=== PATIENT | female | born 1995 | race Caucasian/White ===

== ENCOUNTER 2017-12-24 13:19 | Emergency (ER) | payer OTHER ==
[2017-12-24 13:30] VITALS: BP 130/82
[2017-12-24] MEDS ORDERED: RABIES VACC, HUMAN DIPLOID/PF 2.5 UNIT VIAL (RABAVERT) IM ONE (13:44)
--- NOTE | 2017-12-24 13:51 | EDPHY ---
H & P Time Seen by Provider: 12/24/17 13:38 HPI/ROS: CHIEF COMPLAINT: Rabies vaccine #3 HISTORY OF PRESENT ILLNESS: 22-year-old female presents to the emergency department requesting her 3rd rabies vaccine. The patient was apparently bit by a dog on the [facility] in early November. She had her 1st dose of rabies immunoglobulin and rabies vaccine in [place] on 12/17/2017. She had her 2nd dose of rabies vaccine in [place] on day 3, 12/20/2017 and she is here for her 3rd dose of rabies. She has no complaints. She states that the bite on her right leg has completely healed. Her tetanus shot was also updated. ROS: Denies numbness or tingling in her toes, retained foreign body. Past Medical/Surgical History: Negative Social History: From [place] Smoking Status: Never smoked Physical Exam: On examination the patient has well healed puncture wound to the anterior aspect of her right lower leg. No signs of infection. No palpable bony tenderness. Full range of motion of the right lower extremity. No signs of redness or infection. Constitutional: Initial Vital Signs Temperature (C) 36.9 C 12/24/17 13:28 Heart Rate 96 12/24/17 13:28 Respiratory Rate 17 12/24/17 13:28 Blood Pressure 130/82 H 12/24/17 13:28 O2 Sat (%) 99 12/24/17 13:28 O2 Delivery Mode Room Air Allergies/Adverse Reactions: amoxicillin Allergy (Verified 12/24/17 13:26) Penicillins Allergy (Verified 12/24/17 13:25) Home Medications: Medication Instructions Recorded NK [No Known Home Meds] 12/24/17 MDM/Departure - MDM Medications Given: Discontinued Medications Rabies Vaccine Human Diploid Cell (Rabavert) 2.5 unit IM .ONCE ONE Stop: 12/24/17 13:45 Last Admin: 12/24/17 13:55 Dose: 2.5 unit ED Course/Re-evaluation: 22-year-old female presents to the emergency department for a 3rd rabies vaccine. The patient was given referral to [place] for 4th dose of rabies vaccine although the patient does not know where she will be in 1 week. She thinks that she may be in [place]. She knows that her 4th and final rabies vaccine is scheduled on 12/31/2017. - Depart Disposition: Home, Routine, Self-Care Clinical Impression: rabies vaccine administration Condition: Good Instructions: Rabies Vaccine (ED) Additional Instructions: If you are still in [place] in one week, 12/31, you may follow up at [facility] for your 4th and final rabies vaccine. Referrals: [facility] (ED,. [Edm Groups for Call Sched] - As per Instructions
== END 2017-12-24 14:05 | disposition home or self-care (01) ==
DX: Z23 Encounter for immunization (principal)